=== PATIENT | male | born 1985 ===

== ENCOUNTER 2024-04-15 11:22 | Outpatient (AMB) | payer OTHER, SELFPAY ==
--- NOTE | 2024-04-15 11:23 | MHC.OFFWIV ---
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 Patient had had an infection + fevers so was taking a medication - then the rash started with start of the medication. PFSH Social History Patient Tobacco Use Status: Never used Tobacco Review of Systems Const Details: Rash-see HPI Denies breathing or swallowing difficulties Physical Exam Vital Signs: Last Vital Signs Pulse 63 04/15/24 11:29 BP 116/66 04/15/24 11:29 Pulse Ox 97 04/15/24 11:29 Oxygen Delivery Method Room Air 04/15/24 11:29 BMI result Body Mass Index 23.0 Const General: no acute distress and well developed Nutritional Appearance: well nourished Orientation/consciousness: patient oriented x3 HEENT Other: No swelling or erythema in posterior pharynx Head: Yes normocephalic and Yes atraumatic Eyes General: appearance normal, both eyes and all related structures Pupils: Equal, round and reactive pupils present EOM: EOMs intact bilaterally Resp Other: Clear to auscultation bilaterally Effort & Inspection: normal respiratory effort Auscultation: clear to auscultation bilaterally Cardio Other: Normal to auscultation Rate: regular rate Rhythm: regular rhythm Heart sounds: S1 normal heart sound present, S2 normal heart sound present, no gallops, no murmurs and no rubs Skin Other: Hiveslike wheels over much of body Neuro General: patient oriented x3 and gait normal Cranial nerves: Yes Equal, round and reactive pupils present Psych Affect: normal affect Assessment & Plan Assessment & Plan (1) Allergic drug rash: Code(s): L27.0 - Generalized skin eruption due to drugs and medicaments taken internally Plan: Appears to be a drug rash. No breathing or swallowing difficulty Stop taking offending medication Will give him a script for a short course of prednisone Can also take Benadryl in the evenings Cool compresses Medications: New prednisone 40 mg (2 x 20 mg) PO DAILY 5 days 10 tabs 0RF Coding Level of Care Code New Pt Level 3 (85011) Diagnoses Allergic drug rash L27.0
[2024-04-15 11:29] VITALS: BP 116/66; PULSE 63; O2SAT 97; BMI 23.0
== END 2024-04-15 12:18 | disposition home or self-care (01) ==
PROVIDERS: Visit Provider Family Medicine
DX: L27.0 Generalized skin eruption due to drugs and medicaments taken internally (principal)
CPT/HCPCS: 99051; 99203